=== PATIENT | female | born 1990 ===

== ENCOUNTER 2018-04-11 16:11 | Emergency (ER) | payer OTHER ==
[2018-04-11 16:20] VITALS: RESP 16
--- NOTE | 2018-04-11 18:11 | ED PDOC ---
HPI: General Adult Time Seen by Provider: 04/11/18 16:44 Chief Complaint (Nursing): Weakness/Neurological Deficit Chief Complaint (Provider): Medical evaluation History Per: Patient History/Exam Limitations: no limitations Additional Complaint(s): 28yo female, otherwise well, sent to ER for evaluation after she had an episode of slurred speech. Patient states on 03/02/18 while she was at work, per patient's welding supervisor, she was noted to have slurred speech and there was concern for drug/alcohol intoxication; at that time patient admitted that she had used marijuana the night before and denied any alcohol use. Patient took a breathalyzer test at work, which was negative; patient was then referred to drug abuse services and since then has had routine drug screens. Patient states last week, she went to her therapist as well as psychiatrist and was advised to get a CT as well as a neurological workup. She currently states she has not drank alcohol or used drugs since that incident. Patient denies any focal weaknesses, headache, slurred speech or gait difficulty. Furthermore, patient states she did not think that she had slurred speech at the time of the incident. She has no additional complaints. PMD: none Past Medical History Reviewed: Historical Data, Nursing Documentation, Vital Signs Vital Signs: Last Vital Signs Temp 98.3 F 04/11/18 16:19 Pulse 83 04/11/18 16:19 Resp 16 04/11/18 16:19 BP 139/88 04/11/18 16:19 Pulse Ox 98 04/11/18 16:19 - Medical History PMH: No Chronic Diseases - Surgical History Surgical History: No Surg Hx - Family History Family History: States: No Known Family Hx - Social History Current smoker - smoking cessation education provided: No Alcohol: None Drugs: Denies - Allergies Allergies/Adverse Reactions: Allergies Allergy/AdvReac Type Severity Reaction Status Date / Time No Known Allergies Allergy Verified 04/11/18 16:16 Review of Systems ROS Statement: Except As Marked, All Systems Reviewed And Found Negative Neurological: Negative for: Weakness, Numbness, Change in Speech, Headache, Other (gait changes) Physical Exam - Reviewed Nursing Documentation Reviewed: Yes Vital Signs Reviewed: Yes - Physical Exam Appears: Positive for: Non-toxic, No Acute Distress Head Exam: Positive for: ATRAUMATIC, NORMAL INSPECTION, NORMOCEPHALIC Skin: Positive for: Normal Color Eye Exam: Positive for: Normal appearance, EOMI, PERRL Neck: Positive for: Supple Cardiovascular/Chest: Positive for: Regular Rate, Rhythm Respiratory: Positive for: Normal Breath Sounds Neurologic/Psych: Positive for: Alert, counselor manager II-XII (normal), Oriented, Mood/Affect (normal affect), Cerebellar Tests (normal), Gait (steady). Negative for: Motor/Sensory Deficits, Aphasia, Facial Droop - ECG O2 Sat by Pulse Oximetry: 98 (RA) Pulse Ox Interpretation: Normal Medical Decision Making Medical Decision Making: Impression: transient dysarthria, drug abuse Plan: -- CT Head w/o contrast -- Urine drug screen Accession No. : [id number] Patient Name / ID : MATILDA COBB / [id number] Exam Date : 04/11/2018 18:20:08 ( Approved ) Study Comment : Sex / Age : F / 28Y Creator : Duane Belcher MD Dictator : Duane Belcher MD Vice President Consulting Services : Statistical Financial Analyst : Duane Belcher MD Approver2 : Report Date : 04/11/2018 18:32:13 My Comment : Date of service: 04/11/2018 PROCEDURE: CT HEAD WITHOUT CONTRAST. HISTORY: transient slurred speech COMPARISON: None available. TECHNIQUE: Axial computed tomography images were obtained through the head/brain without intravenous contrast. Radiation dose: Total exam DLP = 862.62 mGy-cm. This CT exam was performed using one or more of the following dose reduction techniques: Automated exposure control, adjustment of the mA and/or kV according to patient size, and/or use of iterative reconstruction technique. FINDINGS: HEMORRHAGE: No intracranial hemorrhage. BRAIN: No mass effect or edema. No atrophy or chronic microvascular ischemic changes. VENTRICLES: Unremarkable. No hydrocephalus. CALVARIUM: Unremarkable. PARANASAL SINUSES: Unremarkable as visualized. No significant inflammatory changes. MASTOID AIR CELLS: Unremarkable as visualized. No inflammatory changes. OTHER FINDINGS: None. IMPRESSION: No acute intracranial pathology. Scribe Attestation: Documented by Leisa Desai acting as a scribe for Gabby Whiteside MD. Provider Attestation: All medical record entries made by the Scribe were at my direction and personally dictated by me. I have reviewed the chart and agree that the record accurately reflects my personal performance of the history, physical exam, medical decision making, and the department course for this patient. I have also personally directed, reviewed, and agree with the discharge instructions and disposition. Disposition - Clinical Impression Clinical Impression: Speech abnormality Counseled Patient/Family Regarding: Studies Performed, Diagnosis, Need For Followup - Disposition Disposition: Routine/Home Disposition Time: 20:00 Condition: GOOD Additional Instructions: CONTINUE YOUR FOLLOWUP INSTRUCTED BY YOUR PSYCHIATRIST Forms: [employer] ([place])
[2018-04-11 18:35] LABS: BARBITURATES, UR NEGATIVE (NEGATIVE); BENZODIAZEPINES, UR NEGATIVE (NEGATIVE); OPIATES, UR NEGATIVE (NEGATIVE); PHENCYCLIDINE, UR NEGATIVE (NEGATIVE)
--- NOTE | 2018-04-11 18:35 | CT ---
Date of service: 04/11/2018 PROCEDURE: CT HEAD WITHOUT CONTRAST. HISTORY: transient slurred speech COMPARISON: None available. TECHNIQUE: Axial computed tomography images were obtained through the head/brain without intravenous contrast. Radiation dose: Total exam DLP = 862.62 mGy-cm. This CT exam was performed using one or more of the following dose reduction techniques: Automated exposure control, adjustment of the mA and/or kV according to patient size, and/or use of iterative reconstruction technique. FINDINGS: HEMORRHAGE: No intracranial hemorrhage. BRAIN: No mass effect or edema. No atrophy or chronic microvascular ischemic changes. VENTRICLES: Unremarkable. No hydrocephalus. CALVARIUM: Unremarkable. PARANASAL SINUSES: Unremarkable as visualized. No significant inflammatory changes. MASTOID AIR CELLS: Unremarkable as visualized. No inflammatory changes. OTHER FINDINGS: None. IMPRESSION: No acute intracranial pathology.
[2018-04-11 20:17] VITALS: BP 119/76; PULSE 69; TEMP 98.4
[2018-04-11 20:42] VITALS: O2SAT 98
== END 2018-04-11 19:15 | disposition home or self-care (01) ==
LOC: H.ER 16:11
DX: R47.9 Unspecified speech disturbances (principal)